=== PATIENT | male | born 1970 | race Caucasian/White ===

== ENCOUNTER 2022-04-06 15:39 | Inpatient (IN) ==
[2022-04-06] MEDS ORDERED: ACETAMINOPHEN 325 MG TABLET PO PRN (17:27)
[2022-04-06] MEDS ORDERED: hydrALAZINE 20 MG/1 ML VIAL IV PRN (17:27)
[2022-04-06] MEDS ORDERED: DOCUSATE SODIUM 100 MG CAPSULE PO PRN (17:27)
[2022-04-06] MEDS: LACTATED RINGERS 1,000 ML IV SCH (17:44)
[2022-04-06] MEDS: ONDANSETRON 4 MG/2 ML VIAL IV PRN (17:46)
[2022-04-06] MEDS: cloNIDine 0.1 MG TABLET PO SCH (20:58)
[2022-04-06] MEDS: HEPARIN 5,000 UNIT/1 ML VIAL SUBCUT SCH (20:58)
[2022-04-07] MEDS: LACTATED RINGERS 1,000 ML IV SCH ×3 (04:16→21:09)
[2022-04-07 04:57] LABS: Basophils % 0.6 % (0.0-0.8); Eosinophils # 0.2 10*3/uL (0.0-0.87); Eosinophils % 2.5 % (0.00-10.9); Hemoglobin 7.6 GM/DL (14.0-18.0); Immature Granulocytes % 0.5 %; Immature Granulocytes Absolute 0.03 #; Lymphocytes # 1.4 10*3/uL (1.4-4.0); Mean Corpuscular Volume 89.1 FL (87-102); Mean Platelet Volume 8.2 FL (9.6-12.0); Monocytes # 0.5 10*3/uL (0.11-0.8); Monocytes % 8.4 % (1.7-12.7); Platelet Count 181 T/CUMM (130-400); Red Blood Count 2.58 MC/CUMM (3.8-5.5); Red Cell Distribution Width 12.6 % (9.3-17.3); White Blood Count 6.28 T/CUMM (4-12)
[2022-04-07 05:21] LABS: Calcium 7.4 MG/DL (8.5-10.1); Osmolality,Calculated 313.8 MOS/KG (273-304); Potassium 4.2 MMOL/L (3.5-5.1)
[2022-04-07] MEDS: HEPARIN 5,000 UNIT/1 ML VIAL SUBCUT SCH ×2 (08:35→21:11)
[2022-04-07] MEDS: cloNIDine 0.1 MG TABLET PO SCH ×2 (08:35→21:11)
[2022-04-07] MEDS: PANTOPRAZOLE 40 MG TABLET PO SCH (08:35)
[2022-04-07] MEDS: amLODIPine 10 MG TABLET PO SCH (08:35)
[2022-04-07 09:17] LABS: % Iron Saturation 41.8 % (18-50)
[2022-04-07 09:27] LABS: Folate 9.05 NG/ML (5.38-24.0)
[2022-04-08] MEDS: LACTATED RINGERS 1,000 ML IV SCH ×3 (05:25→17:14)
[2022-04-08 06:32] LABS: Basophils % 0.5 % (0.0-0.8); Eosinophils # 0.2 10*3/uL (0.0-0.87); Eosinophils % 2.9 % (0.00-10.9); Hematocrit 21.2 VOL% (42.0-52.0); Hemoglobin 7.3 GM/DL (14.0-18.0); Immature Granulocytes % 0.5 %; Immature Granulocytes Absolute 0.03 #; Lymphocytes # 1.1 10*3/uL (1.4-4.0); Lymphocytes % 18.5 % (21.2-54.2); Mean Corpuscular HGB Conc 34.4 GM/DL (32-36); Mean Corpuscular Volume 87.6 FL (87-102); Mean Platelet Volume 8.5 FL (9.6-12.0); Monocytes # 0.4 10*3/uL (0.11-0.8); Monocytes % 6.6 % (1.7-12.7); Platelet Count 174 T/CUMM (130-400); Red Blood Count 2.42 MC/CUMM (3.8-5.5); Red Cell Distribution Width 12.4 % (9.3-17.3); White Blood Count 6.17 T/CUMM (4-12)
[2022-04-08 06:44] LABS: Calcium 7.3 MG/DL (8.5-10.1); Osmolality,Calculated 312.7 MOS/KG (273-304); Potassium 3.9 MMOL/L (3.5-5.1)
[2022-04-08] MEDS: PANTOPRAZOLE 40 MG TABLET PO SCH (08:33)
[2022-04-08] MEDS: amLODIPine 10 MG TABLET PO SCH (08:33)
[2022-04-08] MEDS: cloNIDine 0.1 MG TABLET PO SCH ×2 (08:33→21:54)
[2022-04-08] MEDS: HEPARIN 5,000 UNIT/1 ML VIAL SUBCUT SCH ×2 (08:35→21:54)
[2022-04-09] MEDS: LACTATED RINGERS 1,000 ML IV SCH ×4 (00:42→19:03)
[2022-04-09 06:44] LABS: Basophils % 0.3 % (0.0-0.8); Eosinophils # 0.1 10*3/uL (0.0-0.87); Hematocrit 19.9 VOL% (42.0-52.0); Immature Granulocytes % 0.4 %; Immature Granulocytes Absolute 0.03 #; Lymphocytes # 1.3 10*3/uL (1.4-4.0); Lymphocytes % 19.4 % (21.2-54.2); Mean Corpuscular HGB Conc 35.2 GM/DL (32-36); Mean Corpuscular Volume 86.1 FL (87-102); Mean Platelet Volume 8.7 FL (9.6-12.0); Monocytes # 0.5 10*3/uL (0.11-0.8); Monocytes % 7.2 % (1.7-12.7); Neutrophils % 70.7 % (38.7-73.9); Platelet Count 149 T/CUMM (130-400); Red Blood Count 2.31 MC/CUMM (3.8-5.5); Red Cell Distribution Width 12.3 % (9.3-17.3); White Blood Count 6.92 T/CUMM (4-12)
[2022-04-09 07:02] LABS: Calcium 6.9 MG/DL (8.5-10.1); Osmolality,Calculated 303.3 MOS/KG (273-304); Potassium 3.8 MMOL/L (3.5-5.1)
[2022-04-09] MEDS ORDERED: SODIUM CHLORIDE 0.9% 1,000 ML IV PRN (08:15)
[2022-04-09 08:36] LABS: % Iron Saturation 39.5 % (18-50); Ferritin 252.2 ng/mL (26-388)
[2022-04-09] MEDS: HEPARIN 5,000 UNIT/1 ML VIAL SUBCUT SCH ×2 (08:40→21:36)
[2022-04-09] MEDS: cloNIDine 0.1 MG TABLET PO SCH ×2 (08:55→21:36)
[2022-04-09] MEDS: PANTOPRAZOLE 40 MG TABLET PO SCH (08:55)
[2022-04-09] MEDS: amLODIPine 10 MG TABLET PO SCH (08:55)
[2022-04-09 08:56] LABS: 25 Hydroxy Vitamin D Total 16.7 NG/ML (30-100); Folate 6.43 NG/ML (5.38-24.0)
[2022-04-09 14:44] LABS: Hematocrit 23.7 VOL% (42.0-52.0); Hemoglobin 8.1 GM/DL (14.0-18.0)
[2022-04-09] MEDS: ONDANSETRON 4 MG/2 ML VIAL IV PRN (18:05)
[2022-04-10] MEDS: LACTATED RINGERS 1,000 ML IV SCH ×2 (02:03→12:56)
[2022-04-10 05:59] LABS: Basophils % 0.2 % (0.0-0.8); Eosinophils # 0.1 10*3/uL (0.0-0.87); Eosinophils % 1.5 % (0.00-10.9); Hematocrit 21.4 VOL% (42.0-52.0); Hemoglobin 7.4 GM/DL (14.0-18.0); Immature Granulocytes % 0.5 %; Immature Granulocytes Absolute 0.03 #; Lymphocytes % 14.9 % (21.2-54.2); Mean Corpuscular HGB Conc 34.6 GM/DL (32-36); Mean Corpuscular Volume 85.6 FL (87-102); Mean Platelet Volume 8.6 FL (9.6-12.0); Monocytes # 0.5 10*3/uL (0.11-0.8); Monocytes % 7.4 % (1.7-12.7); Neutrophils % 75.5 % (38.7-73.9); Platelet Count 132 T/CUMM (130-400); Red Cell Distribution Width 12.7 % (9.3-17.3); White Blood Count 6.64 T/CUMM (4-12)
[2022-04-10 06:14] LABS: Calcium 6.8 MG/DL (8.5-10.1); Osmolality,Calculated 286.2 MOS/KG (273-304); Potassium 3.8 MMOL/L (3.5-5.1)
[2022-04-10] MEDS ORDERED: MAGNESIUM SULF RIDER 2 GM/50 ML PREMIX IV ONE (08:22)
[2022-04-10] MEDS ORDERED: CHOLECALCIFEROL 5,000 UNIT TABLET PO SCH (09:00)
[2022-04-10] MEDS: cloNIDine 0.1 MG TABLET PO SCH (09:10)
[2022-04-10] MEDS: amLODIPine 10 MG TABLET PO SCH (09:10)
[2022-04-10] MEDS: PANTOPRAZOLE 40 MG TABLET PO SCH (09:10)
[2022-04-10] MEDS: HEPARIN 5,000 UNIT/1 ML VIAL SUBCUT SCH (09:11)
[2022-04-10 13:38] VITALS: BP 169/92
== END 2022-04-10 14:39 | disposition home or self-care (01) | DRG 684 ==
LOC: PREOBSVTOIN 16:06 → SUATTDRO 16:22 → N.2E 16:22
PROVIDERS: ADMIT Internal Medicine; ATTEND Internal Medicine

== ENCOUNTER 2022-04-13 10:15 | Inpatient (IN) ==
[2022-04-13] MEDS ORDERED: ceFAZolin 2,000 MG/50 ML DUPLEX IV ONE (12:16)
[2022-04-13] MEDS ORDERED: ONDANSETRON 4 MG/2 ML VIAL ONE (12:23)
[2022-04-13] MEDS ORDERED: ONDANSETRON 4 MG/2 ML VIAL IV STA (12:29)
[2022-04-13 12:43] LABS: Basophils % 0.4 % (0.0-0.8); Eosinophils # 0.1 10*3/uL (0.0-0.87); Eosinophils % 0.8 % (0.00-10.9); Hematocrit 24.6 VOL% (42.0-52.0); Hemoglobin 8.6 GM/DL (14.0-18.0); Immature Granulocytes % 0.8 %; Immature Granulocytes Absolute 0.08 #; Lymphocytes # 1.2 10*3/uL (1.4-4.0); Lymphocytes % 11.8 % (21.2-54.2); Mean Corpuscular Volume 85.7 FL (87-102); Monocytes # 0.7 10*3/uL (0.11-0.8); Monocytes % 6.9 % (1.7-12.7); Neutrophils % 79.3 % (38.7-73.9); Platelet Count 228 T/CUMM (130-400); Red Blood Count 2.87 MC/CUMM (3.8-5.5); Red Cell Distribution Width 12.9 % (9.3-17.3); White Blood Count 9.87 T/CUMM (4-12)
[2022-04-13] MEDS ORDERED: ONDANSETRON 4 MG/2 ML VIAL IV PRN (12:46)
[2022-04-13] MEDS ORDERED: BUPIVACAINE MPF 0.25% 10 ML VIAL ONE (13:16)
[2022-04-13] MEDS ORDERED: LIDOCAINE 1%/EPI INJ 20 ML VIAL ONE (13:16)
[2022-04-13] MEDS ORDERED: HEPARIN 5,000 UNIT/1 ML VIAL ONE (13:16)
[2022-04-13] MEDS ORDERED: KETAMINE 500 MG/10 ML VIAL ONE (13:36)
[2022-04-13] MEDS ORDERED: fentaNYL 100 MCG/2 ML VIAL ONE (13:36)
[2022-04-13] MEDS ORDERED: MIDAZOLAM 2 MG/2 ML VIAL ONE (13:36)
[2022-04-13] MEDS ORDERED: SODIUM CHLORIDE 0.9% 250 ML IV SCH (14:00)
[2022-04-13] MEDS ORDERED: AMISULPRIDE 10 MG/4 ML VIAL IV ONE ×2 (14:26→14:35)
[2022-04-13] MEDS: hydrALAZINE 20 MG/1 ML VIAL IV PRN (19:00)
[2022-04-13 19:28] LABS: Hepatitis B Core IgM Quant 0.06 Index; Hepatitis B Surface Ag Quant < 0.10 Index; Hepatitis B Surface Ag Result Non-Reactive (NonReactive); Hepatitis C Virus Ab Quant < 0.02 Index; Hepatitis C Virus Ab Result Non-Reactive (NonReactive)
[2022-04-13] MEDS: ONDANSETRON 4 MG/2 ML VIAL IV PRN (23:34)
[2022-04-14] MEDS: ONDANSETRON 4 MG/2 ML VIAL IV PRN (04:36)
[2022-04-14 05:57] LABS: Basophils % 0.5 % (0.0-0.8); Eosinophils # 0.1 10*3/uL (0.0-0.87); Eosinophils % 0.9 % (0.00-10.9); Hematocrit 22.9 VOL% (42.0-52.0); Hemoglobin 7.9 GM/DL (14.0-18.0); Immature Granulocytes % 0.6 %; Immature Granulocytes Absolute 0.05 #; Lymphocytes # 0.9 10*3/uL (1.4-4.0); Lymphocytes % 10.7 % (21.2-54.2); Mean Corpuscular HGB Conc 34.5 GM/DL (32-36); Mean Corpuscular Volume 86.4 FL (87-102); Mean Platelet Volume 8.6 FL (9.6-12.0); Monocytes # 0.6 10*3/uL (0.11-0.8); Monocytes % 7.4 % (1.7-12.7); Neutrophils % 79.9 % (38.7-73.9); Platelet Count 181 T/CUMM (130-400); Red Blood Count 2.65 MC/CUMM (3.8-5.5); Red Cell Distribution Width 13.2 % (9.3-17.3); White Blood Count 8.67 T/CUMM (4-12)
[2022-04-14 06:33] LABS: Albumin 2.5 G/DL (3.4-5.0); Bilirubin,Total 0.5 MG/DL (0.20-1.00); Osmolality,Calculated 289.4 MOS/KG (273-304); Potassium 3.2 MMOL/L (3.5-5.1); Risk Ratio 5.19; Thyroid Stimulating Hormone 1.56 uIU/ml (0.358-3.74); Total Protein 6.2 G/DL (6.4-8.2)
[2022-04-14] MEDS: PROMETHAZINE 25 MG/1 ML VIAL IM PRN (08:01)
[2022-04-14] MEDS: amLODIPine 10 MG TABLET PO SCH (09:10)
[2022-04-14] MEDS: cloNIDine 0.1 MG TABLET PO SCH ×2 (09:10→20:20)
[2022-04-14] MEDS: CHOLECALCIFEROL 5,000 UNIT TABLET PO SCH (09:10)
[2022-04-14] MEDS ORDERED: HEPARIN 10,000 UNIT/10 ML VIAL IV PRN (11:30)
[2022-04-14] MEDS: hydrALAZINE 20 MG/1 ML VIAL IV PRN (12:57)
[2022-04-15 05:24] LABS: Basophils % 0.4 % (0.0-0.8); Eosinophils # 0.2 10*3/uL (0.0-0.87); Eosinophils % 2.3 % (0.00-10.9); Hematocrit 23.2 VOL% (42.0-52.0); Hemoglobin 7.9 GM/DL (14.0-18.0); Immature Granulocytes % 0.5 %; Immature Granulocytes Absolute 0.04 #; Lymphocytes # 1.2 10*3/uL (1.4-4.0); Lymphocytes % 15.1 % (21.2-54.2); Mean Corpuscular HGB Conc 34.1 GM/DL (32-36); Mean Corpuscular Volume 85.3 FL (87-102); Mean Platelet Volume 8.5 FL (9.6-12.0); Monocytes # 0.9 10*3/uL (0.11-0.8); Monocytes % 11.6 % (1.7-12.7); Neutrophils % 70.1 % (38.7-73.9); Platelet Count 155 T/CUMM (130-400); Red Blood Count 2.72 MC/CUMM (3.8-5.5); Red Cell Distribution Width 13.2 % (9.3-17.3); White Blood Count 7.77 T/CUMM (4-12)
[2022-04-15 06:01] LABS: Calcium 8.1 MG/DL (8.5-10.1); Osmolality,Calculated 284.4 MOS/KG (273-304); Potassium 3.2 MMOL/L (3.5-5.1)
[2022-04-15] MEDS: amLODIPine 10 MG TABLET PO SCH (12:46)
[2022-04-15] MEDS: CHOLECALCIFEROL 5,000 UNIT TABLET PO SCH (12:47)
[2022-04-15] MEDS: cloNIDine 0.1 MG TABLET PO SCH ×2 (12:47→20:19)
[2022-04-15] MEDS: hydrALAZINE 20 MG/1 ML VIAL IV PRN (18:37)
[2022-04-16 05:34] LABS: Basophils % 0.4 % (0.0-0.8); Eosinophils # 0.2 10*3/uL (0.0-0.87); Eosinophils % 3.1 % (0.00-10.9); Hematocrit 23.3 VOL% (42.0-52.0); Hemoglobin 7.9 GM/DL (14.0-18.0); Immature Granulocytes % 0.4 %; Immature Granulocytes Absolute 0.03 #; Lymphocytes % 15.4 % (21.2-54.2); Mean Corpuscular HGB Conc 33.9 GM/DL (32-36); Mean Platelet Volume 8.4 FL (9.6-12.0); Monocytes # 0.8 10*3/uL (0.11-0.8); Monocytes % 11.9 % (1.7-12.7); Neutrophils % 68.8 % (38.7-73.9); Platelet Count 153 T/CUMM (130-400); Red Blood Count 2.71 MC/CUMM (3.8-5.5); Red Cell Distribution Width 13.2 % (9.3-17.3); White Blood Count 6.71 T/CUMM (4-12)
[2022-04-16 05:49] LABS: Calcium 8.2 MG/DL (8.5-10.1); Osmolality,Calculated 280.5 MOS/KG (273-304); Potassium 3.5 MMOL/L (3.5-5.1)
[2022-04-16] MEDS ORDERED: DIAZEPAM 5 MG TABLET PO ONE (08:33)
[2022-04-16] MEDS: CHOLECALCIFEROL 5,000 UNIT TABLET PO SCH (09:00)
[2022-04-16] MEDS: amLODIPine 10 MG TABLET PO SCH (09:13)
[2022-04-16] MEDS: cloNIDine 0.1 MG TABLET PO SCH ×2 (09:13→20:45)
[2022-04-16 09:27] LABS: PT Patient Result 10.9 SECS (10.1-12.1)
[2022-04-16] MEDS: hydrALAZINE 20 MG/1 ML VIAL IV PRN (11:24)
[2022-04-16] MEDS: PROMETHAZINE 25 MG/1 ML VIAL IM PRN (20:45)
[2022-04-17 05:10] LABS: Basophils % 0.6 % (0.0-0.8); Eosinophils # 0.2 10*3/uL (0.0-0.87); Eosinophils % 2.8 % (0.00-10.9); Hematocrit 21.7 VOL% (42.0-52.0); Hemoglobin 7.4 GM/DL (14.0-18.0); Immature Granulocytes % 0.7 %; Immature Granulocytes Absolute 0.05 #; Lymphocytes % 14.1 % (21.2-54.2); Mean Corpuscular HGB Conc 34.1 GM/DL (32-36); Mean Corpuscular Volume 86.8 FL (87-102); Mean Platelet Volume 8.9 FL (9.6-12.0); Monocytes # 0.9 10*3/uL (0.11-0.8); Monocytes % 12.7 % (1.7-12.7); Neutrophils % 69.1 % (38.7-73.9); Platelet Count 170 T/CUMM (130-400); Red Cell Distribution Width 13.1 % (9.3-17.3); White Blood Count 7.11 T/CUMM (4-12)
[2022-04-17 05:51] LABS: Calcium 8.1 MG/DL (8.5-10.1); Osmolality,Calculated 290.3 MOS/KG (273-304); Potassium 3.6 MMOL/L (3.5-5.1)
[2022-04-17] MEDS: amLODIPine 10 MG TABLET PO SCH (09:53)
[2022-04-17] MEDS: cloNIDine 0.1 MG TABLET PO SCH ×2 (09:53→20:45)
[2022-04-17] MEDS: CHOLECALCIFEROL 5,000 UNIT TABLET PO SCH (09:54)
[2022-04-17] MEDS ORDERED: methylPREDNISolone SOD SUC 40 MG/1 ML VIAL IV ONE (10:30)
[2022-04-17] MEDS ORDERED: COLCHICINE 0.6 MG CAPSULE PO ONE (10:33)
[2022-04-17] MEDS: ONDANSETRON 4 MG/2 ML VIAL IV PRN (13:12)
[2022-04-17] MEDS: hydrALAZINE 20 MG/1 ML VIAL IV PRN (14:00)
[2022-04-17] MEDS ORDERED: ACETAMINOPHEN 325 MG TABLET PO PRN (15:16)
[2022-04-17] MEDS: DICLOFENAC 1% GEL 100 GM TUBE TOP SCH ×2 (16:56→20:46)
[2022-04-17] MEDS: COLCHICINE 0.6 MG CAPSULE PO SCH (20:45)
[2022-04-18 05:48] LABS: Basophils % 0.3 % (0.0-0.8); Eosinophils % 0.3 % (0.00-10.9); Hematocrit 22.4 VOL% (42.0-52.0); Hemoglobin 7.3 GM/DL (14.0-18.0); Immature Granulocytes % 0.7 %; Immature Granulocytes Absolute 0.05 #; Lymphocytes % 14.3 % (21.2-54.2); Mean Corpuscular HGB Conc 32.6 GM/DL (32-36); Mean Corpuscular Volume 87.5 FL (87-102); Mean Platelet Volume 8.5 FL (9.6-12.0); Monocytes # 0.9 10*3/uL (0.11-0.8); Monocytes % 13.3 % (1.7-12.7); Neutrophils % 71.1 % (38.7-73.9); Platelet Count 178 T/CUMM (130-400); Red Blood Count 2.56 MC/CUMM (3.8-5.5); Red Cell Distribution Width 13.2 % (9.3-17.3); White Blood Count 6.94 T/CUMM (4-12)
[2022-04-18 06:14] LABS: Calcium 8.4 MG/DL (8.5-10.1); Osmolality,Calculated 284.5 MOS/KG (273-304); Potassium 4.1 MMOL/L (3.5-5.1)
[2022-04-18] MEDS: COLCHICINE 0.6 MG CAPSULE PO SCH ×2 (09:35→20:47)
[2022-04-18] MEDS: CHOLECALCIFEROL 5,000 UNIT TABLET PO SCH (09:35)
[2022-04-18] MEDS: cloNIDine 0.1 MG TABLET PO SCH ×2 (09:36→20:47)
[2022-04-18] MEDS: DICLOFENAC 1% GEL 100 GM TUBE TOP SCH ×3 (09:36→20:47)
[2022-04-18] MEDS: amLODIPine 10 MG TABLET PO SCH (09:36)
[2022-04-18] MEDS: PROMETHAZINE 25 MG/1 ML VIAL IM PRN (09:39)
[2022-04-19 05:44] LABS: Basophils # 0.1 10*3/uL (0.0-0.2); Basophils % 0.9 % (0.0-0.8); Eosinophils # 0.2 10*3/uL (0.0-0.87); Hematocrit 22.1 VOL% (42.0-52.0); Hemoglobin 7.5 GM/DL (14.0-18.0); Immature Granulocytes % 0.3 %; Immature Granulocytes Absolute 0.02 #; Lymphocytes # 1.2 10*3/uL (1.4-4.0); Lymphocytes % 19.9 % (21.2-54.2); Mean Corpuscular HGB Conc 33.9 GM/DL (32-36); Mean Platelet Volume 8.8 FL (9.6-12.0); Monocytes # 0.8 10*3/uL (0.11-0.8); Neutrophils % 60.9 % (38.7-73.9); Platelet Count 218 T/CUMM (130-400); Red Blood Count 2.51 MC/CUMM (3.8-5.5); Red Cell Distribution Width 13.1 % (9.3-17.3); White Blood Count 5.78 T/CUMM (4-12)
[2022-04-19 06:03] LABS: Calcium 8.2 MG/DL (8.5-10.1); Osmolality,Calculated 295.4 MOS/KG (273-304); Potassium 4.3 MMOL/L (3.5-5.1)
[2022-04-19 06:19] LABS: Calcium 8.2 MG/DL (8.5-10.1); Osmolality,Calculated 294.5 MOS/KG (273-304); Potassium 4.4 MMOL/L (3.5-5.1)
[2022-04-19] MEDS: cloNIDine 0.1 MG TABLET PO SCH (08:32)
[2022-04-19] MEDS: CHOLECALCIFEROL 5,000 UNIT TABLET PO SCH (08:32)
[2022-04-19] MEDS: amLODIPine 10 MG TABLET PO SCH (08:32)
[2022-04-19] MEDS: DICLOFENAC 1% GEL 100 GM TUBE TOP SCH (09:44)
[2022-04-19] MEDS: COLCHICINE 0.6 MG CAPSULE PO SCH (09:45)
[2022-04-19 11:01] VITALS: BP 148/79
== END 2022-04-19 14:13 | disposition home or self-care (01) | DRG 675 ==
LOC: N.ED 10:15 → N.EDINP 10:15 → SUATTDRO 12:46 → N.EDINP 13:36 → N.3E 18:26
PROVIDERS: ADMIT Internal Medicine; ATTEND Hospitalist